=== PATIENT | male | born 1960 | race African-American/Black ===

== ENCOUNTER 2017-01-12 03:31 | Emergency (ER) | payer OTHER ==
[~2017-01-12] VITALS: Ht 190.5 cm; Wt 134.1 kg
[~2017-01-12 03:31] MED LIST: ASPI-556 PO; LISI10TA7 PO; METO25TA6 PO
[2017-01-12] MEDS ORDERED: CLOP75 PO (03:41)
[2017-01-12] MEDS ORDERED: HYDR25TA PO (03:41)
[2017-01-12 03:49] VITALS: BP 144/89
[2017-01-12] MEDS ORDERED: DiphenhydrAMINE HCL 50 MG CAPSULE PO ONE (04:00)
== END 2017-01-12 04:20 | disposition home or self-care (01) ==
LOC: EMS 03:32
DX: T63.441A Toxic effect of venom of bees, accidental (unintentional), initial encounter (principal); I11.9 Hypertensive heart disease without heart failure; I25.2 Old myocardial infarction; F17.210 Nicotine dependence, cigarettes, uncomplicated; Z79.82 Long term (current) use of aspirin
CPT/HCPCS: 99282